=== PATIENT | female | born 1955 | race Caucasian/White ===

== ENCOUNTER → 2016-05-01 | Outpatient (CLI) | payer BC ==
--- NOTE | 2016-05-01 15:59 | REPMRS ---
Patient History The patient states she has not had a clinical breast exam in over a year. Patient is nulliparous. No known family history of cancer. Benign excisional biopsy of the left breast. Digital Woman Screen Mammo: May 01, 2016 - Exam #: [id number] Bilateral CC and MLO view(s) were taken. Technologist: Nicole Marks, Technologist Prior study comparison: April 19, 2015, digital woman screen mammo performed at [facility]. April 20, 2014, digital woman screen mammo performed at [facility]. April 14, 2013, digital woman screen mammo performed at [facility]. FINDINGS: There are scattered fibroglandular densities. There has been no change in the appearance of the mammogram from the prior studies. There is a mild amount of scattered fibroglandular density which is fairly symmetric. There is no interval development of dominant mass, architectural distortion, or clustered microcalcification suggestive of malignancy. ASSESSMENT: BI-RADS/ACR category 1 mammogram. Negative. Recommendation Routine screening mammogram in 1 year (for women over age 40). This mammogram was interpreted with the aid of an FDA-approved computer-aided dectection system. Electronically Signed By: Tk Jaramillo MD 05/01/16 [id number]
== END ==
LOC: M WHC 15:03
PROVIDERS: ATTEND Nurse Practitioner Family
DX: Z12.31 Encounter for screening mammogram for malignant neoplasm of breast (principal)

== ENCOUNTER → 2016-05-05 | Outpatient (CLI) | payer BC ==
--- NOTE | 2016-05-05 12:51 | REP ---
BILATERAL INGUINAL ULTRASOUND: Bilateral inguinal ultrasound performed to evaluate for possible inguinal or femoral hernia. There is no sonographic evidence of inguinal or femoral hernia. Imaging is performed at rest and with Valsalva maneuver. Small lymph nodes are seen which are not significantly enlarged. IMPRESSION: No sonographic evidence of inguinal or femoral hernia. Signed by Dharmesh Elliott MD 05/05/2016 08:32 P
== END ==
LOC: M RAD 10:44
PROVIDERS: ATTEND Nurse Practitioner Family
DX: R10.30 Lower abdominal pain, unspecified (principal)

== ENCOUNTER → 2016-10-12 | Outpatient (CLI) | payer BC ==
--- NOTE | 2016-10-12 17:58 | REP ---
LEFT FOOT, FOUR VIEWS: HISTORY: Pain. There is no acute fracture or dislocation. The joint spaces are normal in appearance. Osteophytes are present on the inferior and posterior calcaneus. IMPRESSION: There is no acute fracture or dislocation. Signed by Darrel Benton MD 10/13/2016 08:26 A
== END ==
LOC: M RAD 15:05
PROVIDERS: ATTEND Nurse Practitioner Family
DX: M79.672 Pain in left foot (principal)

== ENCOUNTER → 2017-04-05 | Outpatient (REF) | payer BC, OTHER | LOC: M SFHCPLAZ 17:11 | DX: L72.3 Sebaceous cyst (principal) | CPT/HCPCS: 87205 ==

== ENCOUNTER → 2017-07-23 | Outpatient (CLI) | payer BC, OTHER | LOC: M WHC 08:14 | DX: Z12.31 Encounter for screening mammogram for malignant neoplasm of breast (principal) | CPT/HCPCS: 77067 ==

== ENCOUNTER → 2017-07-23 | Outpatient (REF) | payer BC | LOC: M SFHCWAGY 08:44 | DX: Z12.72 Encounter for screening for malignant neoplasm of vagina (principal) | CPT/HCPCS: G0123 ==

== ENCOUNTER → 2017-09-03 | Outpatient (REF) | payer BC ==
[2017-09-03 11:21] LABS: ALBUMIN 3.9 GM/DL (3.2-5.2); ALBUMIN/GLOBULIN RATIO 1.18 (1.00-1.93); ALKALINE PHOSPHATASE 93 U/L (45-117); ALT/SGPT 20 U/L (12-78); ANION GAP 8 MEQ/L (8-16); AST/SGOT 10 U/L (7-37); BILIRUBIN,TOTAL 0.5 MG/DL (0.2-1.0); BLOOD UREA NITROGEN 19 MG/DL (7-18); CALCIUM LEVEL 8.5 MG/DL (8.8-10.2); CARBON DIOXIDE LEVEL 28 MEQ/L (21-32); CHLORIDE LEVEL 105 MEQ/L (98-107); CHOLESTEROL LEVEL 155 MG/DL (<200); CREATININE FOR GFR 0.64 MG/DL (0.55-1.30); GLOMERULAR FILTRATION RATE > 60.0 (>45); GLUCOSE, FASTING 104 MG/DL (70-100); HDL CHOLESTEROL 50 MG/DL (>40); LDL CHOLESTEROL 79.8 MG/DL (<100); NON-HDL-C 105 MG/DL; POTASSIUM SERUM 4.4 MEQ/L (3.5-5.1); SODIUM LEVEL 141 MEQ/L (136-145); TOTAL PROTEIN 7.2 GM/DL (6.4-8.2); TRIGLYCERIDES LEVEL 126 MG/DL (<150)
[2017-09-03 11:22] LABS: ESTIMATED AVERAGE GLUCOSE 123 MG/DL (60-110); HEMOGLOBIN A1c 5.9 %
== END ==
LOC: M SFHCPLAZ 08:15
DX: E78.2 Mixed hyperlipidemia (principal); R73.01 Impaired fasting glucose; E03.9 Hypothyroidism, unspecified
CPT/HCPCS: 84443

== ENCOUNTER → 2017-09-12 | Outpatient (REF) | payer BC | LOC: M SFHCPLAZ 08:38 | DX: E03.9 Hypothyroidism, unspecified (principal) | CPT/HCPCS: 84443 ==

== ENCOUNTER 2018-04-24 17:58 | Inpatient (IN) | payer BC ==
[~2018-04-24] VITALS: Ht 162.6 cm; Wt 84.7 kg
[2018-04-24] MEDS ORDERED: LEVO150T7 (18:08)
[2018-04-24] MEDS ORDERED: VENL37.598 (18:08)
[2018-04-24] MEDS ORDERED: DICL1GEL3 (18:08)
[2018-04-24] MEDS ORDERED: GABA-843 (18:08)
[2018-04-24] MEDS ORDERED: SIMV40TA2 (18:08)
[2018-04-24 19:04] LABS: BASO # 0.1 10^3/uL (0.0-0.2); BASO % 0.7 % (0.0-1.0); EOS # 0.3 10^3/uL (0.0-0.50); EOS % 4.2 % (0.0-3.0); HEMATOCRIT 40.2 % (36.0-47.0); LYMPH # 1.7 10^3/uL (1.5-4.5); LYMPH % 22.9 % (24.0-44.0); MEAN CORPUSCULAR HEMOGLOBIN 31.1 pg (27.0-33.0); MEAN CORPUSCULAR HGB CONC 34.8 g/dl (32.0-36.5); MEAN CORPUSCULAR VOLUME 89.3 fl (80.0-96.0); MONO # 0.7 10^3/uL (0.0-0.8); MONO % 9.2 % (0.0-5.0); NEUTROPHILS # 4.6 10^3/uL (1.8-7.7); NEUTROPHILS % 62.6 % (36.0-66.0); PLATELET COUNT, AUTOMATED 291 10^3/uL (150-450); WHITE BLOOD COUNT 7.4 10^3/uL (4.0-10.0)
[2018-04-24 19:38] LABS: ALBUMIN 3.4 GM/DL (3.2-5.2); ALT/SGPT 18 U/L (12-78); BILIRUBIN,DIRECT < 0.1 MG/DL (0.0-0.2); BILIRUBIN,TOTAL 0.2 MG/DL (0.2-1.0); BLOOD UREA NITROGEN 28 MG/DL (7-18); CALCIUM LEVEL 8.9 MG/DL (8.8-10.2); CARBON DIOXIDE LEVEL 28 MEQ/L (21-32); CHLORIDE LEVEL 108 MEQ/L (98-107); CREATININE FOR GFR 0.73 MG/DL (0.55-1.30); GLOMERULAR FILTRATION RATE > 60.0 (>45); GLUCOSE, FASTING 114 MG/DL (70-100); LIPASE 86 U/L (73-393); SODIUM LEVEL 143 MEQ/L (136-145); TOTAL PROTEIN 6.6 GM/DL (6.4-8.2)
[2018-04-24] MEDS ORDERED: NS 1,000 ML IV ONE (19:45)
[2018-04-24] MEDS ORDERED: ONDANSETRON 4MG/2ML VIAL (J2405) IV ONE (19:45)
[2018-04-24] MEDS ORDERED: KETOROLAC 30 MG/ML VIAL (J1885) IV ONE (19:45)
[2018-04-24] MEDS ORDERED: ISOVUE-370 76% 100ML VIAL (Q9967) As Ordered ONE (20:09)
--- NOTE | 2018-04-24 21:18 | REPVR ---
EXAM: CT Abdomen and Pelvis With Contrast EXAM DATE/TIME: 04/24/2018 8:13 PM CLINICAL HISTORY: 63 years old, female; Pain; Abdominal pain; Additional info: Llq pain TECHNIQUE: Axial computed tomography images of the abdomen and pelvis with intravenous contrast. All CT scans at this facility use at least one of these dose optimization techniques: automated exposure control; mA and/or kV adjustment per patient size (includes targeted exams where dose is matched to clinical indication); or iterative reconstruction. Coronal and sagittal reformatted images were created and reviewed. CONTRAST: Contrast Material: 100 ml of ISOVUE 370; Contrast Route: IV COMPARISON: Pelvis, limited US 05/05/2016 10:52 AM FINDINGS: Lower thorax: Minimal bibasilar fibro-atelectatic change. ABDOMEN: Liver: Liver attenuation is 84 Hounsfield units and the spleen is 119 Hounsfield units. Gallbladder and bile ducts: The gallbladder is somewhat contracted with no stones. Pancreas: Normal. No ductal dilation. Spleen: Normal. No splenomegaly. Adrenals: Slight fullness of the left adrenal without specific nodule suggesting hyperplasia. Kidneys and ureters: Normal. No hydronephrosis. Stomach and bowel: There is a lobular fatty mass protruding into the lumen of the gastric body from the caudal wall was some protrusion through the dae-inferior gastric wall into the adjacent perigastric soft tissues suggesting a mural lipoma which protrudes into the lumen of stomach measuring approximately 2.4 x 2.2 x 2.3 cm. There is suggestion of a central dimple or ulceration within the stomach. Colonic diverticulosis. There is slight pericolonic induration of the distal descending colon which may reflect early or minimal diverticulitis. There is a linear density in the proximal descending colon which slightly tents the posterior wall although definite extension beyond the wall is not seen and no pericolonic induration or pericolonic gas is present at this location. Appendix: A normal appendix is seen. PELVIS: Bladder: Unremarkable as visualized. Reproductive: Status post hysterectomy. ABDOMEN and PELVIS: Intraperitoneal space: Minimal free air in the upper abdomen. Bones/joints: Degenerative changes of the lumbar spine with facet arthropathy. Soft tissues: Unremarkable. Vasculature: There is irregularity of the right renal artery with suggestion of ulceration or superficial aneurysm. There is minimal atherosclerotic calcification of the abdominal aorta. Lymph nodes: Normal. No enlarged lymph nodes. IMPRESSION: 1. Minimal free air in the epigastrium consistent with perforated viscus. 2. Colonic diverticulosis with slight pericolonic induration in the distal descending colon suggesting early or minimal diverticulitis although no definite site of perforation is seen and there is no pericolonic gas. 3. Linear radiopaque ingested foreign body in the proximal descending colon or distal splenic flexure which protrudes into the posterior wall with slight tenting of the wall but no definite penetration of the wall. No pericolonic induration or gas is noted. 4. Mild fatty infiltration of the liver. 5. Lobular fatty mass or mural lipoma within the gastric body with question of slight extension through the wall into the anteroinferior perigastric fat. There is question of a central dimple or ulceration in the portion within the stomach. 6. Irregularity of the right renal artery suggesting atherosclerotic ulceration. 7. Status post hysterectomy. Electronically signed by: Juan Carlos Goyal On 04/24/2018 21:18:23 PM
[2018-04-24] MEDS ORDERED: SIMV40TA2 PO (23:20)
[2018-04-24] MEDS ORDERED: SYNT150T PO (23:20)
[2018-04-24] MEDS ORDERED: GABA-843 PO (23:20)
[2018-04-24] MEDS ORDERED: DICL1GEL3 TOP (23:20)
[2018-04-24] MEDS ORDERED: ACETAMINOPHEN TAB 650MG DOSE (2X325MG) PO PRN (23:45)
[2018-04-24] MEDS ORDERED: METOCLOPRAMIDE INJ 10MG/2ML VIAL (J2765) IV PRN (23:45)
[2018-04-24] MEDS ORDERED: ONDANSETRON 4MG/2ML VIAL (J2405) IV PRN (23:45)
[2018-04-24] MEDS ORDERED: MORPHINE 4 MG/ML 1ML VIAL/SYRINGE (J2270) IV PRN (23:45)
[2018-04-24] MEDS ORDERED: NORCO, ANEXSIA 5/325MG TABLET (HYDROcodone/ACETAMINOPHEN) PO PRN (23:45)
[2018-04-25] MEDS: LR 1,000 ML IV SCH ×3 (00:31→16:32)
[2018-04-25] MEDS: CIPROFLOXACIN 400 MG in APPROPRIATE DILUENT 1 EA IV SCH ×2 (00:31→12:58)
[2018-04-25] MEDS: metroNIDAZOLE 500 MG in APPROPRIATE DILUENT 1 EA IV SCH ×3 (01:33→16:32)
[2018-04-25 03:25] VITALS: BP 127/60
--- NOTE | 2018-04-25 04:26 | HPE ---
DATE OF ADMISSION: 04/24/2018 REASON FOR ADMISSION: 1. Free intraperitoneal air. 2. Colonic foreign body. 3. Urinary tract infection. HISTORY OF PRESENT ILLNESS: The patient is a pleasant 63-year-old woman who presented to the emergency department at 1758 on April 24 complaining of some lower abdominal discomfort and the impression that she had a urinary tract infection. The patient reports that on Sunday night, April 19, she and her had fish filets for dinner. She did not notice anything in peculiar about the fish. She retired at about 9 or 10 o'clock in the evening. She was awakened in the middle of the night with diarrhea. She then developed nausea and vomiting which persisted all Sunday night and into Sunday morning. On Sunday evening, she was able to take some Jell-o and abel yolette. By Sunday her symptoms had remitted enough that she had some chicken with her on Sunday evening. On Sunday morning, she noted that there was some discomfort across the lower abdomen. This persisted and became somewhat more pronounced but still fairly mild. On the morning of the , she voided due to the urge to go, but noticed she only had a small trickle of urine released. She noted this is being abnormal; and with her symptoms, she thought she most likely had a urinary tract infection. She presented to the emergency department for evaluation. She had some lab work done and a urinalysis that showed many white cells in the urine with a 1+ leukocyte esterase and 1+ bacteria. Her labs were otherwise unremarkable. She underwent a CT scan of the abdomen and pelvis apparently to look for evidence of diverticulitis. When a CT scan images were reviewed, she was noted to have multiple perhaps 10 or 12 small free air bubbles in the left upper quadrant and around the liver. She has extensive sigmoid diverticulitis and diverticulosis. There was a calcified linear structure in the region of the splenic flexure suggestive of a foreign body, possibly a bone. There was no free fluid noted. The radiologist noted a lobular fatty mass of the gastric wall. A normal appendix was seen. Because of her free air and the colonic foreign body, I was consulted to evaluate the patient. ALLERGIES: The patient reports allergies to SULFA and ASPIRIN, as well as some environmental allergies. Her regular medications include: - diclofenac gel for her feet as needed - gabapentin 300 mg daily at bedtime - levothyroxine 150 mcg by mouth every evening - simvastatin 40 mg by mouth daily at bedtime Her surgical history is significant for a hysterectomy and tonsillectomy and she has had bilateral knee surgeries performed arthroscopically. MEDICAL HISTORY: The patient has hypothyroidism. She has a history of diverticulosis and previous diverticulitis. She does report having had urinary tract infections previously; most recently perhaps 6 months ago. She reports a history of hypercholesterolemia. SOCIAL HISTORY: The patient denies significant alcohol intake. She does smoke about a pack to a pack and half cigarettes per day. She is accompanied to the emergency department by her . FAMILY HISTORY: She has no significant history of heritable illnesses. REVIEW OF SYSTEMS: This shows no history of cardiac disease, chest pain or palpitations. She has not had a cough, wheezing or sputum production. She has no history of deep vein thrombosis (DVT) or pulmonary embolus. There is no history of seizure or stroke. She denies any acute bone or joint issues. There is no history of hepatitis, pancreatitis or yellow jaundice. She denies any history of peptic ulcer disease. She does report a past history of diverticulitis. PHYSICAL EXAMINATION: The patient was lying quietly on the hospital stretcher in the emergency department when I came to see year. She is alert and oriented. Sclerae are anicteric. Mucous membranes are moist. Neck is supple without mass or bruit. Heart exam shows a regular rhythm. The lungs are clear to auscultation bilaterally. The patient's abdomen is flat. She has bowel sounds present. There is no tympany to percussion and no tenderness to percussion. The abdomen is soft throughout without appreciable tenderness. There is a small area of tenderness low in the suprapubic area. Extremities show no peripheral edema and she has palpable dorsalis pedis pulses. She has palpable radial pulse bilaterally. Laboratory studies include a complete blood count (CBC) that shows a white count of 7, hemoglobin of 14, hematocrit of 40 and platelet count of 291,000. Differential count shows 63% neutrophils, 23% lymphocytes, 9% monocytes. Chemistry profile shows a sodium of 143, potassium 4.0, chloride 108, CO2 of 28, BUN of 28, creatinine 0.7 and glucose of 114. Liver function tests are normal and her lipase is 86. Urinalysis shows 1+ leukocyte esterase, 39 white cells and 8 red cells per high-power field with 1+ bacteria. IMPRESSION: 1. Free intra-abdominal air consistent with perforated viscus without any evidence of peritoneum, peritonitis and with no significant abdominal pain. Likewise on the CT scan there is no area around the bowel or stomach with free air to suggest a source for the leak. 2. Foreign body splenic flexure of colon. This looks like it could be a bone based on the calcified nature of the structure. This does not appear to puncture the colon at this time, though I suppose it could be that it had caused a perforation elsewhere which has sealed and the bone then moved down the colon further. 3. Probable urinary tract infection. PLAN: The patient has no evidence for an infection with a normal white count, no pain and no tenderness of significance on exam. Given the free air, she clearly has had a perforation of her viscus, but the timing of this is unclear. This may have happened days ago and we are seeing only the residual air within the abdomen. The patient does not recall any difficulties with swallowing or any suggestion of swallowing a bone or finding other bones either in the fish or the chicken she had over the weekend. She will be admitted to the hospital for close observation. I will put her on some antibiotics with Cipro and Flagyl which should treat her urinary tract infection also be prophylactic against any sort of intestinal perforation. She has a abnormality in the colon which could represent a bone and this will need to be monitored and possibly addressed either endoscopically or surgically. The patient and her were counseled regarding the rationale for admission with antibiotics and are agreeable with this plan. I will recheck her labs in the morning. We will continue her Synthroid. I will allow her to take some clear liquids as her abdomen is so benign at this point.
[2018-04-25 07:35] LABS: BASO % 0.7 % (0.0-1.0); EOS # 0.3 10^3/uL (0.0-0.50); EOS % 5.5 % (0.0-3.0); HEMATOCRIT 36.9 % (36.0-47.0); HEMOGLOBIN 12.7 g/dl (12.0-15.5); LYMPH # 1.3 10^3/uL (1.5-4.5); LYMPH % 21.5 % (24.0-44.0); MEAN CORPUSCULAR HEMOGLOBIN 31.2 pg (27.0-33.0); MEAN CORPUSCULAR HGB CONC 34.4 g/dl (32.0-36.5); MEAN CORPUSCULAR VOLUME 90.7 fl (80.0-96.0); MONO # 0.7 10^3/uL (0.0-0.8); NEUTROPHILS # 3.7 10^3/uL (1.8-7.7); NEUTROPHILS % 61.1 % (36.0-66.0); PLATELET COUNT, AUTOMATED 255 10^3/uL (150-450); RED BLOOD COUNT 4.07 10^6/uL (4.00-5.40)
[2018-04-25 08:00] VITALS: BP 115/55
[2018-04-25 08:10] LABS: ALBUMIN 2.9 GM/DL (3.2-5.2); ALT/SGPT 16 U/L (12-78); BILIRUBIN,TOTAL 0.5 MG/DL (0.2-1.0); BLOOD UREA NITROGEN 23 MG/DL (7-18); CALCIUM LEVEL 7.9 MG/DL (8.8-10.2); CARBON DIOXIDE LEVEL 26 MEQ/L (21-32); CHLORIDE LEVEL 109 MEQ/L (98-107); CREATININE FOR GFR 0.55 MG/DL (0.55-1.30); GLOMERULAR FILTRATION RATE > 60.0 (>45); GLUCOSE, FASTING 104 MG/DL (70-100); POTASSIUM SERUM 3.9 MEQ/L (3.5-5.1); SODIUM LEVEL 141 MEQ/L (136-145)
--- NOTE | 2018-04-25 08:10 | REP ---
Clinical: Foreign body. Technique: Single supine view of the abdomen and pelvis. Correlation: CT dated 04/24/2018. Findings: There appears to be a thin linear foreign body measuring approximately 13 mm in length in the left mid abdomen corresponding to similar finding on CT which is essentially unchanged in position consistent with a suggestion that is enlarged into and possibly through the colonic lumen. This may represent a small ingested bony fragment but correlation with physical examination and history is recommended. Further evaluation the bowel pattern suggests fecal stasis. No obstruction or perforation identified. No organomegaly. Skeletal structures demonstrate degenerative changes. Layering contrast noted in the bladder. Impression: Thin linear foreign body in the left mid abdomen corresponding to finding on CT. The small amount of free air identified on CT is not obvious or apparent by current radiograph. Electronically Signed by Luis Felipe Champagne MD 04/25/2018 08:01 A
[2018-04-25 12:00] VITALS: BP 115/59
[2018-04-25 14:15] VITALS: BP 118/58
[2018-04-25] MEDS ORDERED: LEVOTHYROXINE 150MCG TABLET (0.15MG) PO SCH (17:00)
[2018-04-25] MEDS ORDERED: CIPR-249 PO (17:31)
[2018-04-25] MEDS ORDERED: FLAG500T PO (17:31)
--- NOTE | 2018-04-26 17:21 | IPN ---
DATE: 04/25/2018 HISTORY: The patient is a 63-year-old woman who was admitted last evening after presenting to the emergency department with symptoms suggestive of a urinary tract infection. A CT scan showed some bubbles of free air in the upper abdomen. There was also a linear density in the proximal descending colon, which slightly tented the posterior wall with no evidence of pericolonic induration or pericolonic gas at that level. The radiologist felt that this represented a foreign body of uncertain significance. The patient was admitted overnight and kept on antibiotics. Today she has felt fine and has tolerated clear liquids. Vital Signs: Show that she has been afebrile since admission. Her pulse remains in the 50s, and her blood pressure is excellent with a normal room air oxygen saturation. Intake and output shows that yesterday she had 4 liters in with 1800 out. PHYSICAL EXAMINATION: The patient is sitting up in bed looking comfortable. She is alert and oriented. Heart exam shows a slow regular rhythm. Lungs are clear. The abdomen is flat. She has active bowel sounds. The abdomen is soft and nontender without appreciable mass. Laboratory studies today show a white count of 6 with differential showing 61% neutrophils, 22% lymphocytes and 11% monocytes with 6% eosinophils. Hemoglobin is 13 with a hematocrit of 37 and the platelet count is 255,000. Chemistry profile shows normal electrolytes with the exception of a slight elevation of the chloride to 109. BUN is 23 with a creatinine of 0.55 and the glucose is 104. Liver function tests are normal. A KUB was done this morning, which shows a persistent linear foreign body in the left midabdomen. This appears to lie at the same level as on the CT scan from the night before. Her urine culture returned as no growth of clinical significance despite having many white cells and positive bacteria on the urinalysis. IMPRESSION: 1. Free intra-abdominal air of uncertain significance but certainly suggestive of a now sealed perforation. 2. Colonic foreign body. 3. No evidence of urinary tract infection by culture. 4. Diverticulosis. PLAN: I spoke earlier in the day with one of the admissions nurse regarding this patient. I asked his impression regarding the potential of performing a colonoscopy to remove the foreign body. It is unclear if this foreign body is of any significance, however. The source of the free air remains unclear. It may be that she had perforated a diverticulum minimally which then sealed. It could be that the foreign body had caused a perforation of the bowel, which then also subsequently sealed. Certainly she has no evidence for peritonitis currently. In speaking with Dr. Hawkins, we have agreed that it seemed that a minimal approach of monitoring only would probably be the best. In order to perform a colonoscopy, it would be necessary to do a bowel prep, and there is no certainty whether this would be more or less likely to cause the foreign body to cause a perforation. Likewise, there is no evidence of any inflammation in the area where the foreign body is located, so identifying this laparoscopically to try to remove it would also be difficult if not impossible. I had a long discussion with the patient regarding our options for care. We have agreed that she will be discharged home this evening. She will be sent home on antibiotics, and I will provide her with ciprofloxacin and Flagyl for a 5-day supply. She will eat a regular diet. I have asked her to have a KUB done on 04/29/2018, to followup on the location of the foreign body. It may be that when this overlies her more midline skeletal structures that we will not be able to identify this by a plain film. She was counseled at length that if she were to develop significant abdominal or pelvic pain that she should return to the emergency department for reevaluation. I will otherwise plan on having her follow up with me in the office in 10 days to ensure that we do not lose her to followup. The patient appeared to understand the plan. She agrees to return if any problems develop. I will await the results of her KUB from 04/29/2018.
== END 2018-04-25 19:01 | disposition home or self-care (01) | DRG 254 ==
LOC: M ED 17:58 → M ED INP 23:44 → M PCU 04-25 03:18 → M MS5PR 04-25 13:52
PROVIDERS: ADMIT Surgery; ATTEND Surgery
DX: T18.4XXA Foreign body in colon, initial encounter (principal); K63.1 Perforation of intestine (nontraumatic); Y92.009 Unspecified place in unspecified non-institutional (private) residence as the place of occurrence of the external cause; J30.9 Allergic rhinitis, unspecified; K57.32 Diverticulitis of large intestine without perforation or abscess without bleeding; E03.9 Hypothyroidism, unspecified; E78.00 Pure hypercholesterolemia, unspecified; Z79.899 Other long term (current) drug therapy; Z88.2 Allergy status to sulfonamides; Z88.6 Allergy status to analgesic agent

== ENCOUNTER → 2018-04-29 | Outpatient (CLI) | payer BC ==
[~2018-04-29] MED LIST: CIPR-249 PO; DICL1GEL3; DICL1GEL3 TOP; FLAG500T PO; GABA-843; GABA-843 PO; LEVO150T7; SIMV40TA2; SIMV40TA2 PO; SYNT150T PO; VENL37.598
--- NOTE | 2018-04-29 09:12 | REP ---
Clinical: Follow-up foreign body. Technique: Two supine views of the abdomen and pelvis. Comparison: 04/25/2018. Findings: While the previously noted foreign body is not definitively identified on current examination, its position within the sigmoid in the deep pelvis overlying the sacrum cannot definitively be excluded. The bowel gas pattern is otherwise nonspecific and without evidence for obstruction or obvious perforation. Skeletal structures demonstrate stable degenerative changes. No organomegaly. Impression: 1. Although the foreign body is not definitively identified, its position within the sigmoid in the pelvis overlying the sacrum cannot definitively be excluded. Clinical correlation is recommended along with follow-up x-ray in 24-48 hours may be warranted. Electronically Signed by Luis Felipe Champagne MD 04/29/2018 09:04 A
== END ==
LOC: M RAD 08:38
PROVIDERS: ATTEND Surgery
DX: Z09 Encounter for follow-up examination after completed treatment for conditions other than malignant neoplasm (principal); T18.4XXD Foreign body in colon, subsequent encounter; Y92.9 Unspecified place or not applicable; Y93.9 Activity, unspecified

== ENCOUNTER → 2018-04-30 | Outpatient (CLI) | payer BC ==
--- NOTE | 2018-04-30 15:21 | REP ---
Clinical: Foreign body. Technique: Two supine views of the abdomen and pelvis. Findings: Bowel gas pattern is nonspecific. No foreign body identified. No evidence for obstruction or perforation. No organomegaly. Skeletal structures demonstrate degenerative changes. Impression: Nonspecific bowel gas pattern. No radiodense foreign body identified. Electronically Signed by Luis Felipe Champagne MD 04/30/2018 03:13 P
== END ==
LOC: M RAD 14:47
PROVIDERS: ATTEND Family Medicine
DX: T18.9XXD Foreign body of alimentary tract, part unspecified, subsequent encounter (principal); X58.XXXA Exposure to other specified factors, initial encounter; Y92.9 Unspecified place or not applicable

== ENCOUNTER → 2018-07-30 | Outpatient (CLI) | payer BC ==
--- NOTE | 2018-07-30 09:55 | REPMRS ---
Patient History The patient states she had a clinical breast exam in 07/2018. Patient is nulliparous. No known family history of cancer. Benign excisional biopsy of the left breast. No Hormone Replacement Therapy 3D TOMOSYNTHESIS WAS PERFORMED. Digital Woman Screen Mammo: July 30, 2018 - Exam #: [id number] Bilateral CC and MLO view(s) were taken. Technologist: Shaina Ball, Technologist Prior study comparison: July 23, 2017, digital woman screen mammo performed at [facility]. May 01, 2016, digital woman screen mammo performed at [facility]. FINDINGS: The breast tissue is heterogeneously dense. This may lower the sensitivity of mammography. There has been no change in the appearance of the mammogram from the prior studies. There is a moderate amount of residual fibroglandular tissue which is fairly symmetric. There is no interval development of dominant mass, areas of architectural distortion, or clustered microcalcification typical of malignancy. Assessment: BI-RADS/ACR category 1 mammogram. Negative Mammogram. Recommendation Routine screening mammogram in 1 year (for women over age 40). This mammogram was interpreted with the aid of an FDA-approved computer-aided dectection system. Electronically Signed By: Dharmesh Elliott MD 07/30/18 [id number]
== END ==
LOC: M WHC 07:53
PROVIDERS: ATTEND Nurse Practitioner Family
DX: Z12.31 Encounter for screening mammogram for malignant neoplasm of breast (principal)

== ENCOUNTER → 2018-09-09 | Outpatient (REF) | payer BC ==
[2018-09-09 12:29] LABS: BLOOD UREA NITROGEN 16 MG/DL (7-18); CALCIUM LEVEL 8.7 MG/DL (8.8-10.2); CARBON DIOXIDE LEVEL 31 MEQ/L (21-32); CHLORIDE LEVEL 106 MEQ/L (98-107); CHOLESTEROL LEVEL 146 MG/DL (<200); CHOLESTEROL RISK RATIO 3.106 (<5); CREATININE FOR GFR 0.68 MG/DL (0.55-1.30); FREE T4 1.19 NG/DL (0.76-1.46); GLOMERULAR FILTRATION RATE > 60.0 (>45); GLUCOSE, FASTING 111 MG/DL (70-100); HDL CHOLESTEROL 47 MG/DL (>40); LDL CHOLESTEROL 76 MG/DL (<100); NON-HDL-C 99 MG/DL; POTASSIUM SERUM 4.5 MEQ/L (3.5-5.1); SODIUM LEVEL 140 MEQ/L (136-145); TRIGLYCERIDES LEVEL 117 MG/DL (<150)
[2018-09-09 12:32] LABS: HEMOGLOBIN A1c 6.5 %
== END ==
LOC: M SFHCLERA 08:13
PROVIDERS: ATTEND Family Medicine
DX: E03.9 Hypothyroidism, unspecified (principal); R73.01 Impaired fasting glucose; E78.2 Mixed hyperlipidemia

== ENCOUNTER → 2018-12-02 | Outpatient (REF) | payer BC ==
[2018-12-02 12:07] LABS: BLOOD UREA NITROGEN 17 MG/DL (7-18); CALCIUM LEVEL 8.7 MG/DL (8.8-10.2); CARBON DIOXIDE LEVEL 29 MEQ/L (21-32); CHLORIDE LEVEL 107 MEQ/L (98-107); CREATININE FOR GFR 0.64 MG/DL (0.55-1.30); GLOMERULAR FILTRATION RATE > 60.0 (>45); GLUCOSE, FASTING 113 MG/DL (70-100); POTASSIUM SERUM 4.7 MEQ/L (3.5-5.1); SODIUM LEVEL 140 MEQ/L (136-145)
[2018-12-02 12:27] LABS: HEMOGLOBIN A1c 5.9 %
[2018-12-02 12:54] LABS: MALB URINE SIEMENS 45.8 MG/L
== END ==
LOC: M SFHCLERA 07:53
PROVIDERS: ATTEND Family Medicine
DX: E11.9 Type 2 diabetes mellitus without complications (principal)

== ENCOUNTER → 2019-02-25 | Outpatient (CLI) | payer BC ==
[~2019-02-25] MED LIST changes: -SIMV40TA2; -SIMV40TA2 PO; +SIMV40TA20; +SIMV40TA20 PO
--- NOTE | 2019-02-25 12:01 | REPPI ---
Clinical: Cervical neck pain. Technique: AP, lateral, flexion/extension, bilateral oblique, and open-mouth views of the cervical spine. Findings: Alignment and lordosis maintained. No acute fracture / compression injury or subluxation. Mild multilevel degenerative changes include marginal spurring with minimal endplate sclerosis. Subtle disc space narrowing at C6-7 noted. Neural foramen appear patent. Open mouth view demonstrates normal C1-C2 articulation and odontoid process. Impression: Minimal age-related degenerative changes. Electronically Signed by Luis Felipe Champagne MD 02/25/2019 11:52 A
== END ==
LOC: M PLAIMG 11:35
PROVIDERS: ATTEND Nurse Practitioner Family
DX: M50.322 Other cervical disc degeneration at C5-C6 level (principal); M25.78 Osteophyte, vertebrae

== ENCOUNTER → 2019-08-01 | Outpatient (CLI) | payer BC ==
--- NOTE | 2019-08-01 15:24 | REPMRS ---
Patient History The patient states she had a clinical breast exam in July 2019. No known family history of cancer. Benign excisional biopsy of the left breast. No Hormone Replacement Therapy Digital Woman Screen Mammo: August 01, 2019 - Exam #: [id number] Bilateral CC and MLO view(s) were taken. Technologist: Sheree Tovar, Technologist Prior study comparison: July 30, 2018, bilateral digital woman screen mammo performed at [facility]. July 23, 2017, digital woman screen mammo performed at [facility]. May 01, 2016, digital woman screen mammo performed at [facility]. FINDINGS: There are scattered fibroglandular densities. The Volpara volumetric breast density category is:A. There has been no change in the appearance of the mammogram from the prior studies. There is a mild amount of scattered fibroglandular density which is fairly symmetric. There is no interval development of dominant mass, architectural distortion, or grouped microcalcification suggestive of malignancy. 3-D tomosynthesis shows no additional findings. Assessment: BI-RADS/ACR category 1 mammogram. Negative Mammogram. Recommendation Routine screening mammogram of both breasts in 1 year (for women over age 40). This patient's Lifetime Breast Cancer Risk is estimated at 9.1 %. This mammogram was interpreted with the aid of an FDA-approved computer-aided dectection system. Electronically Signed By: Tk Jaramillo MD 08/01/19 [id number]
--- NOTE | 2019-08-06 09:13 | DEXA ---
AP SPINE L1 - L4 1.417 1.8 3.3 LT FEMUR TOTAL 0.955 -0.4 0.7 LT NECK 0.858 -1.3 0.1 RT FEMUR TOTAL 0.996 -0.1 1.0 RT NECK 1.028 -0.1 1.3 TOTAL BODY TOTAL OTHER COMMENTS: Normal bone densitometry of the spine. Normal bone densitometry of the right hip. There is low bone density of the left hip. The decreased density of the spine does represent a significant change. The increased density of the left hip does represent a significant change. The decreased density of the right hip does not represent a significant change. The density of the spine is decreased 3.6% since the initial exam on 07/03/2006. The decreased 5.1% since the most recent exam on 04/19/2015. The density of the left hip has decreased 4.0% since the initial exam on 07/03/2006. The density of the left hip has increased 3.1% since the most recent exam on 04/19/2015. The density of the right hip has decreased 3.6% since the initial exam on 07/03/2006. The density of the right hip has decreased 0.3% since the most recent exam on 04/19/2015. FOLLOW-UP: Recommendation for the next bone density exam: 2 years. CODY
== END ==
LOC: M WHC 14:04
PROVIDERS: ATTEND Nurse Practitioner Family

== ENCOUNTER → 2019-08-01 | Outpatient (REF) | payer BC ==
[2019-08-01 18:38] LABS: FREE T4 1.42 NG/DL (0.76-1.46); THYROID STIMULATING HORMONE 0.827 uIU/ML (0.358-3.740)
== END ==
LOC: M LRY 17:04
PROVIDERS: ATTEND Family Medicine
DX: E03.9 Hypothyroidism, unspecified (principal)

== ENCOUNTER → 2019-08-26 | Outpatient (REF) | payer BC ==
[2019-08-26 12:54] LABS: ALBUMIN 3.8 GM/DL (3.2-5.2); ALT/SGPT 20 U/L (12-78); BILIRUBIN,TOTAL 0.6 MG/DL (0.2-1.0); BLOOD UREA NITROGEN 16 MG/DL (7-18); CALCIUM LEVEL 8.8 MG/DL (8.8-10.2); CARBON DIOXIDE LEVEL 30 MEQ/L (21-32); CHLORIDE LEVEL 105 MEQ/L (98-107); CHOLESTEROL LEVEL 132 MG/DL (<200); CHOLESTEROL RISK RATIO 3.771 (<5); CREATININE FOR GFR 0.58 MG/DL (0.55-1.30); GLOMERULAR FILTRATION RATE > 60.0 (>45); GLUCOSE, FASTING 97 MG/DL (70-100); HDL CHOLESTEROL 35 MG/DL (>40); LDL CHOLESTEROL 66 MG/DL (<100); NON-HDL-C 97 MG/DL; POTASSIUM SERUM 4.7 MEQ/L (3.5-5.1); SODIUM LEVEL 138 MEQ/L (136-145); TRIGLYCERIDES LEVEL 157 MG/DL (<150)
[2019-08-26 13:23] LABS: HEMOGLOBIN A1c 6.8 %
== END ==
LOC: M SFHCLERA 09:07
PROVIDERS: ATTEND Family Medicine
DX: E78.2 Mixed hyperlipidemia (principal); Z13.1 Encounter for screening for diabetes mellitus

== ENCOUNTER → 2019-11-21 | Outpatient (CLI) | payer BC ==
[2019-11-21 16:12] LABS: HEMOGLOBIN A1c 6.3 %
== END ==
LOC: M PLALAB 12:47
PROVIDERS: ATTEND Family Medicine
DX: E11.9 Type 2 diabetes mellitus without complications (principal)

== ENCOUNTER → 2019-12-04 | Outpatient (REF) | payer BC | LOC: M SFHCPLAZ 17:06 | PROVIDERS: ATTEND Family Medicine | DX: L02.91 Cutaneous abscess, unspecified (principal) ==

== ENCOUNTER → 2020-01-26 | Outpatient (CLI) | payer BC ==
--- NOTE | 2020-01-26 09:52 | REP ---
INDICATION: NICOTINE DEPENDENCE COMPARISON: None. TECHNIQUE: Axial noncontrast images from the thoracic inlet to the upper abdomen using low-dose lung screening technique (LDCT). FINDINGS: Lung banks are well aerated. Very small scattered non solid ground-glass densities up to approximately 5 mm are suggested. There is a small focus of pleural thickening along the posterior right lower lobe (image 50) measuring approximately 10 mm in width. No consolidation, further suspicious nodule or mass lesion appreciated. No effusion. No pneumothorax. Tracheobronchial tree is patent. IMPRESSION: Lung rads category 2 based on above findings without prior examinations for comparison. Management recommendations include annual low-dose CT surveillance. <Electronically signed by Luis Felipe Champagne > 01/26/20 [id number]
== END ==
LOC: M RAD 08:36
PROVIDERS: ATTEND Family Medicine
DX: Z12.2 Encounter for screening for malignant neoplasm of respiratory organs (principal); F17.210 Nicotine dependence, cigarettes, uncomplicated; R94.2 Abnormal results of pulmonary function studies; R91.8 Other nonspecific abnormal finding of lung field

== ENCOUNTER → 2020-04-05 | Outpatient (REF) | payer BC ==
[~2020-04-05] MED LIST changes: +GABA-282; +GABA-282 PO; -GABA-843; -GABA-843 PO
[2020-04-05 14:43] LABS: CREATININE, URINE 16.6 MG/DL; MALB URINE SIEMENS < 5.0 MG/L; MAU/CREAT RATIO 30.1 MCG/MG (0.0-30.0)
[2020-04-05 16:27] LABS: HEMOGLOBIN A1c 6.3 %
== END ==
LOC: M PLALAB 10:11
PROVIDERS: ATTEND Family Medicine
DX: E11.9 Type 2 diabetes mellitus without complications (principal)

== ENCOUNTER → 2020-04-29 | Outpatient (CLI) | payer BC ==
[~2020-04-29] MED LIST changes: +CRAN400C PO; +METF-838 PO; +SYNT175T2 PO
== END ==
LOC: M LABSMTC 09:53
PROVIDERS: ATTEND Anesthesiology
DX: Z01.812 Encounter for preprocedural laboratory examination (principal); Z20.822 Contact with and (suspected) exposure to COVID-19

== ENCOUNTER 2020-05-04 06:35 | Day surgery (SDC) | payer BC ==
[~2020-05-04] VITALS: Ht 162.6 cm; Wt 86.6 kg
[2020-05-04] MEDS ORDERED: NS 1,000 ML IV ONE (07:00)
[2020-05-04] MEDS ORDERED: LIDOCAINE 2% 100MG/5ML SDV (FOR ANES.) As Ordered ONE (07:37)
[2020-05-04] MEDS ORDERED: propofoL 200 MG/20 ML VIAL As Ordered ONE ×2 (07:37→07:38)
--- NOTE | 2020-05-04 08:06 | ROOR ---
Patient Name: Ingrid Lara Procedure Date: 05/04/2020 7:29 AM Date of : 1955 Age: 65 Room: [facility] Gender: Female Note Status: Finalized Procedure: Colonoscopy Indications: Screening for colorectal malignant neoplasm Providers: Rashi FIELD MD Referring MD: Mary Araiza MD Requesting Provider: Medicines: Monitored Anesthesia Care Complications: No immediate complications. Procedure: Pre-Anesthesia Assessment: - The heart rate, respiratory rate, oxygen saturations, blood pressure, adequacy of pulmonary ventilation, and response to care were monitored throughout the procedure. The Colonoscope was introduced through the anus and advanced to the cecum, identified by appendiceal orifice and ileocecal valve. The colonoscopy was performed without difficulty. The patient tolerated the procedure well. The quality of the bowel preparation was good. Findings: The perianal and digital rectal examinations were normal. The left colon was significantly tortuous. Multiple small and large-mouthed diverticula were found in the left colon. There was evidence of diverticular spasm. Three sessile polyps were found in the rectum, sigmoid colon and splenic flexure. The polyps were 5 to 8 mm in size. These polyps were removed with a cold snare. Resection and retrieval were complete. Small Internal Hemorrhoids. Impression: - Tortuous colon with moderate to severe diverticulosis in the left colon. There was evidence of diverticular spasm. - Three 5 to 8 mm polyps in the rectum, in the sigmoid colon and at the splenic flexure, removed with a cold snare. Resected and retrieved. - Small Internal Hemorrhoids. Recommendation: - Would repeat colonoscopy in 3 years for surveillance. (tortuous colon with extensive diverticulosis/deep recesses/folds) Procedure Code(s): --- Professional --- 55576, Colonoscopy, flexible; with removal of tumor(s), polyp(s), or other lesion(s) by snare technique Diagnosis Code(s): --- Professional --- Z12.11, Encounter for screening for malignant neoplasm of colon K62.1, Rectal polyp K63.5, Polyp of colon K57.30, Diverticulosis of large intestine without perforation or abscess without bleeding Q43.8, Other specified congenital malformations of intestine CPT copyright 2019 [employer]. All rights reserved. The codes documented in this report are preliminary and upon disability manager review may be revised to meet current compliance requirements. Rashi Field MD Rashi FIELD MD 05/04/2020 8:06:17 AM Electronically signed by Rashi FIELD MD Number of Addenda: 0 Note Initiated On: 05/04/2020 7:29 AM Estimated Blood Loss: Estimated blood loss: none.
[2020-05-04 08:35] VITALS: BP 171/79
== END 2020-05-04 08:44 | disposition home or self-care (01) ==
LOC: M OPP 06:35
PROVIDERS: ATTEND Internal Medicine Gastroenterology
DX: Z12.11 Encounter for screening for malignant neoplasm of colon (principal); K64.8 Other hemorrhoids; K62.1 Rectal polyp; K63.5 Polyp of colon; Q43.8 Other specified congenital malformations of intestine; E11.9 Type 2 diabetes mellitus without complications; E03.9 Hypothyroidism, unspecified; F17.210 Nicotine dependence, cigarettes, uncomplicated; Z79.84 Long term (current) use of oral hypoglycemic drugs; Z79.899 Other long term (current) drug therapy; Z88.2 Allergy status to sulfonamides; Z88.6 Allergy status to analgesic agent; Z88.8 Allergy status to other drugs, medicaments and biological substances

== ENCOUNTER → 2020-08-03 | Outpatient (CLI) | payer BC ==
--- NOTE | 2020-08-03 12:26 | REPMRS ---
Patient History The patient states she had a clinical breast exam in August 2020. No known family history of cancer. Benign excisional biopsy of the left breast. No Hormone Replacement Therapy Patient states no breast complaints. Patient has signed the MRS history sheet. Digital Woman Screen Mammo: August 03, 2020 - Exam #: [id number] Bilateral CC and MLO view(s) were taken. Technologist: Carolee Villar, Technologist Prior study comparison: August 01, 2019, bilateral digital woman screen mammo performed at [facility]. July 30, 2018, bilateral digital woman screen mammo performed at [facility]. FINDINGS: There are scattered fibroglandular densities. Screening. Digital screening (2D) mammography was performed bilaterally in the CC and MLO projections. Additionally, breast tomosynthesis (3D mammography) was performed bilaterally in the CC and MLO projections. Todays exam was compared to the prior exams. By history, the patient has no complaints of a palpable breast abnormality or other significant breast complaints. The breasts are unchanged in size and shape. There are no sina-soft tissue densities or spiculated masses. There is no internal architectural distortion. There are no suspicious sina-calcific clusters. Skin thickening or nipple retraction is not present. IMPRESSION: BI-RADS Category 2- Benign Findings. There is no evidence of malignant alteration of the breasts. Followup examination recommended in one year. The Volpara volumetric breast density category is B, there are scattered areas of fibroglandular density. This mammogram was read with the assistance of [employer],an FDA approved computer aided detection system for mammography. The lifetime Tyrer-Cuzick score is 8.7 % Negative x-ray reports should not delay surgical consultation if a dominant or clinically suspicious mass is present. Not all breast cancers can be identified by mammography. Therefore, we recommend that you continue to perform regular breast self-examination and physical examination and then promptly contact your physician of any concerns or changes. Adenosis and dense breasts may obscure an underlying neoplasm. Assessment: BI-RADS/ACR category 2 mammogram. Benign Findings. Recommendation Routine screening mammogram of both breasts in 1 year. Electronically Signed By: Robin Schilling DO 08/03/20 [id number]
== END ==
LOC: M WHC 10:48
PROVIDERS: ATTEND Obstetrics & Gynecology
DX: Z12.31 Encounter for screening mammogram for malignant neoplasm of breast (principal)

== ENCOUNTER → 2020-11-24 | Outpatient (CLI) | payer BC ==
[2020-11-24 10:55] LABS: HEMOGLOBIN A1c 6.8 %
[2020-11-24 11:02] LABS: MAU/CREAT RATIO 18.5 MCG/MG (0.0-30.0)
[2020-11-24 11:07] LABS: ALBUMIN 3.7 GM/DL (3.2-5.2); ALT/SGPT 33 U/L (12-78); BILIRUBIN,TOTAL 0.4 MG/DL (0.2-1.0); BLOOD UREA NITROGEN 18 MG/DL (7-18); CALCIUM LEVEL 8.9 MG/DL (8.8-10.2); CARBON DIOXIDE LEVEL 31 MEQ/L (21-32); CHLORIDE LEVEL 104 MEQ/L (98-107); CHOLESTEROL LEVEL 142 MG/DL (<200); CHOLESTEROL RISK RATIO 4.303 (<5); GLOMERULAR FILTRATION RATE > 60.0 (>45); GLUCOSE, FASTING 153 MG/DL (70-100); HDL CHOLESTEROL 33 MG/DL (>40); LDL CHOLESTEROL 77 MG/DL (<100); NON-HDL-C 109 MG/DL; POTASSIUM SERUM 4.6 MEQ/L (3.5-5.1); SODIUM LEVEL 140 MEQ/L (136-145); TOTAL PROTEIN 6.7 GM/DL (6.4-8.2); TRIGLYCERIDES LEVEL 159 MG/DL (<150)
== END ==
LOC: M PLALAB 08:04
PROVIDERS: ATTEND Family Medicine
DX: E11.9 Type 2 diabetes mellitus without complications (principal); E78.2 Mixed hyperlipidemia; E03.9 Hypothyroidism, unspecified

== ENCOUNTER → 2021-01-25 | Outpatient (CLI) | payer BC ==
--- NOTE | 2021-01-25 11:52 | REP ---
INDICATION: NIDOTINE DEPEND. COMPARISON: 01/26/2020 also low-dose screening CT of the lungs TECHNIQUE: Axial noncontrast images from the thoracic inlet to the upper abdomen using low-dose lung screening technique (LDCT). As per the protocol only lung window imaging was sent to the read station for interpretation FINDINGS: There is biapical pleuroparenchymal scarring status quo. The small area of pleural thickening seen previously in the right lower lobe has resolved. No new abnormal nodules, masses, or opacities have developed since the last exam. There is mild cylindrical bronchiectasis status quo. Grossly, the mediastinum and pulmonary ryan are unchanged. Grossly, the imaged upper abdomen and imaged osseous structures are unchanged. IMPRESSION: Lung rads category 2 low-dose screening CT examination of the lungs. Follow-up as per the revised Fleischner society criteria. <Electronically signed by Robin Schilling > 01/25/21 1830
== END ==
LOC: M RAD 10:22
PROVIDERS: ATTEND Family Medicine
DX: Z12.2 Encounter for screening for malignant neoplasm of respiratory organs (principal); F17.210 Nicotine dependence, cigarettes, uncomplicated

== ENCOUNTER → 2021-05-31 | Outpatient (CLI) | payer MEDICARE ==
[2021-05-31 10:31] LABS: HEMOGLOBIN A1c 7.8 %
== END ==
LOC: M PLALAB 08:45
PROVIDERS: ATTEND Family Medicine
DX: E11.9 Type 2 diabetes mellitus without complications (principal)

== ENCOUNTER → 2021-08-31 | Outpatient (CLI) | payer MEDICARE ==
[2021-08-31 15:35] LABS: HEMATOCRIT 47.4 % (36.0-47.0); HEMOGLOBIN 15.9 g/dl (12.0-15.5); MEAN CORPUSCULAR HEMOGLOBIN 30.7 pg (27.0-33.0); MEAN CORPUSCULAR HGB CONC 33.5 g/dl (32.0-36.5); MEAN CORPUSCULAR VOLUME 91.5 fl (80.0-96.0); PLATELET COUNT, AUTOMATED 334 10^3/uL (150-450); RED BLOOD COUNT 5.18 10^6/uL (4.00-5.40); WHITE BLOOD COUNT 11.8 10^3/uL (4.0-10.0)
[2021-08-31 16:04] LABS: ALBUMIN 3.9 GM/DL (3.2-5.2); ALT/SGPT 35 U/L (12-78); BILIRUBIN,TOTAL 0.6 MG/DL (0.2-1.0); BLOOD UREA NITROGEN 15 MG/DL (7-18); C REACTIVE PROTEIN QUANTITATIV 1.69 MG/DL (0.00-0.30); CALCIUM LEVEL 9.5 MG/DL (8.8-10.2); CARBON DIOXIDE LEVEL 28 MEQ/L (21-32); CHLORIDE LEVEL 108 MEQ/L (98-107); CHOLESTEROL LEVEL 143 MG/DL (<200); CHOLESTEROL RISK RATIO 4.085 (<5); CREATININE FOR GFR 0.71 MG/DL (0.55-1.30); GLOMERULAR FILTRATION RATE > 60.0 (>45); GLUCOSE, FASTING 120 MG/DL (70-100); HDL CHOLESTEROL 35 MG/DL (>40); LDL CHOLESTEROL 61 MG/DL (<100); NON-HDL-C 108 MG/DL; POTASSIUM SERUM 5.2 MEQ/L (3.5-5.1); SODIUM LEVEL 141 MEQ/L (136-145); THYROID STIMULATING HORMONE 0.803 uIU/ML (0.358-3.740); TOTAL PROTEIN 7.2 GM/DL (6.4-8.2); TRIGLYCERIDES LEVEL 233 MG/DL (<150)
[2021-08-31 16:07] LABS: MALB URINE SIEMENS 29.7 MG/L; MAU/CREAT RATIO 15.6 MCG/MG (0.0-30.0)
[2021-08-31 16:10] LABS: HEMOGLOBIN A1c 7.1 %
[2021-08-31 16:16] LABS: TOTAL 25(OH) VITAMIN D 21.2 NG/ML (30.0-100.0); VITAMIN B12 LEVEL 332 PG/ML (247-911)
== END ==
LOC: M PLALAB 10:07
PROVIDERS: ATTEND Internal Medicine Hematology
DX: E11.9 Type 2 diabetes mellitus without complications (principal); Z79.899 Other long term (current) drug therapy

== ENCOUNTER → 2021-12-06 | Outpatient (CLI) | payer MEDICARE | LOC: M WHC 10:47 | PROVIDERS: ATTEND Specialist | DX: Z12.31 Encounter for screening mammogram for malignant neoplasm of breast (principal) ==

== ENCOUNTER → 2022-03-16 | Outpatient (CLI) | payer MEDICARE ==
[2022-03-16 14:03] LABS: HEMATOCRIT 47.5 % (36.0-47.0); HEMOGLOBIN 15.9 g/dl (12.0-15.5); MEAN CORPUSCULAR HEMOGLOBIN 30.5 pg (27.0-33.0); MEAN CORPUSCULAR HGB CONC 33.5 g/dl (32.0-36.5); PLATELET COUNT, AUTOMATED 326 10^3/uL (150-450); RED BLOOD COUNT 5.22 10^6/uL (4.00-5.40); WHITE BLOOD COUNT 9.4 10^3/uL (4.0-10.0)
[2022-03-16 14:07] LABS: ALKALINE PHOSPHATASE 106 U/L (46-116); ALT/SGPT 26 U/L (7.0-40); AST/SGOT 15 U/L (<34); BILIRUBIN,TOTAL 0.4 MG/DL (0.3-1.2); BLOOD UREA NITROGEN 19 MG/DL (9-23); CALCIUM LEVEL 9.2 MG/DL (8.3-10.6); CARBON DIOXIDE LEVEL 29 MMOL/L (20-31); CHLORIDE LEVEL 102 MMOL/L (98-107); CHOLESTEROL LEVEL 142 MG/DL (<200); CHOLESTEROL RISK RATIO 3.64 (<5); CREATININE FOR GFR 0.58 MG/DL (0.55-1.30); GLOMERULAR FILTRATION RATE > 60.0 (>45); GLUCOSE, FASTING 141 MG/DL (74-106); LDL CHOLESTEROL 69.6 MG/DL (<100); NON-HDL-C 103 MG/DL; POTASSIUM SERUM 4.7 MMOL/L (3.5-5.1); SODIUM LEVEL 137 MMOL/L (136-145); TOTAL PROTEIN 6.9 G/DL (5.7-8.2); TRIGLYCERIDES LEVEL 167 MG/DL (<150)
[2022-03-16 14:10] LABS: FREE T4 1.57 NG/DL (0.89-1.76)
[2022-03-16 14:11] LABS: FERRITIN 56.8 NG/ML (7.3-270.7); THYROID STIMULATING HORMONE 0.949 uIU/ML (0.55-4.78)
[2022-03-16 14:14] LABS: VITAMIN B12 LEVEL 358 PG/ML (211-911)
[2022-03-16 14:23] LABS: HEMOGLOBIN A1c 6.9 % (4.0-6.0)
[2022-03-16 14:26] LABS: CREATININE, URINE 160.9 MG/DL; MAU/CREAT RATIO 21.1 MCG/MG (0.0-30.0)
[2022-03-16 15:41] LABS: TOTAL 25(OH) VITAMIN D 62.4 NG/ML (20.0-100.0)
== END ==
LOC: M PLALAB 10:13
PROVIDERS: ATTEND Internal Medicine Hematology
DX: E11.9 Type 2 diabetes mellitus without complications (principal)

== ENCOUNTER → 2022-03-29 | Outpatient (CLI) | payer MEDICARE | LOC: M RAD 13:06 | PROVIDERS: ATTEND Internal Medicine Hematology | DX: F17.210 Nicotine dependence, cigarettes, uncomplicated (principal); Z12.2 Encounter for screening for malignant neoplasm of respiratory organs ==

== ENCOUNTER → 2022-09-21 | Outpatient (CLI) | payer MEDICARE ==
[2022-09-21 13:52] LABS: HEMATOCRIT 46.2 % (36.0-47.0); HEMOGLOBIN 15.6 g/dl (12.0-15.5); MEAN CORPUSCULAR HEMOGLOBIN 30.5 pg (27.0-33.0); MEAN CORPUSCULAR HGB CONC 33.8 g/dl (32.0-36.5); MEAN CORPUSCULAR VOLUME 90.4 fl (80.0-96.0); PLATELET COUNT, AUTOMATED 311 10^3/uL (150-450); RED BLOOD COUNT 5.11 10^6/uL (4.00-5.40); WHITE BLOOD COUNT 6.7 10^3/uL (4.0-10.0)
[2022-09-21 14:43] LABS: HEMOGLOBIN A1c 7.8 % (4.0-6.0)
[2022-09-21 14:59] LABS: CREATININE, URINE 57.5 MG/DL
[2022-09-21 15:02] LABS: MALB URINE SIEMENS < 3.0 MG/L; MAU/CREAT RATIO 5.2 MCG/MG (0.0-30.0)
[2022-09-21 15:18] LABS: ALBUMIN 3.9 G/DL (3.2-5.2); ALKALINE PHOSPHATASE 103 U/L (46-116); ALT/SGPT 31 U/L (7.0-40); AST/SGOT 13 U/L (<34); BILIRUBIN,TOTAL 0.5 MG/DL (0.3-1.2); BLOOD UREA NITROGEN 14 MG/DL (9-23); CARBON DIOXIDE LEVEL 28 MMOL/L (20-31); CHLORIDE LEVEL 104 MMOL/L (98-107); CHOLESTEROL LEVEL 119 MG/DL (<200); CREATININE FOR GFR 0.51 MG/DL (0.55-1.30); FREE T4 1.45 NG/DL (0.89-1.76); GLOMERULAR FILTRATION RATE > 60.0 (>45); GLUCOSE, FASTING 135 MG/DL (74-106); POTASSIUM SERUM 4.8 MMOL/L (3.5-5.1); SODIUM LEVEL 139 MMOL/L (136-145); TOTAL 25(OH) VITAMIN D 73.7 NG/ML (20.0-100.0); TOTAL PROTEIN 6.7 G/DL (5.7-8.2); TRIGLYCERIDES LEVEL 154 MG/DL (<150); VITAMIN B12 LEVEL 327 PG/ML (211-911)
[2022-09-21 15:37] LABS: CHOLESTEROL RISK RATIO 3.16 (<5); HDL CHOLESTEROL 37.6 MG/DL (>40); LDL CHOLESTEROL 50.6 MG/DL (<100); NON-HDL-C 81.4 MG/DL
== END ==
LOC: M PLALAB 11:25
PROVIDERS: ATTEND Internal Medicine Hematology
DX: E11.9 Type 2 diabetes mellitus without complications (principal); Z79.899 Other long term (current) drug therapy

== ENCOUNTER → 2022-10-17 | Outpatient (CLI) | payer MEDICARE ==
[~2022-10-17] MED LIST changes: +DICL100G10; +DICL100G10 TOP; -DICL1GEL3; -DICL1GEL3 TOP
== END ==
LOC: M PLAIMG 08:45
PROVIDERS: ATTEND Internal Medicine Hematology
DX: M77.32 Calcaneal spur, left foot (principal)

== ENCOUNTER → 2022-12-11 | Outpatient (CLI) | payer MEDICARE | LOC: M WHC 09:43 | PROVIDERS: ATTEND Specialist | DX: Z12.31 Encounter for screening mammogram for malignant neoplasm of breast (principal) ==

== ENCOUNTER → 2022-12-11 | Outpatient (CLI) | payer MEDICARE | LOC: M WHC 10:34 | PROVIDERS: ATTEND Internal Medicine Hematology | DX: Z13.820 Encounter for screening for osteoporosis (principal); Z78.0 Asymptomatic menopausal state ==

== ENCOUNTER → 2023-01-10 | Outpatient (CLI) | payer MEDICARE ==
[2023-01-10 14:04] LABS: ALBUMIN 3.9 G/DL (3.2-5.2); ALKALINE PHOSPHATASE 97 U/L (46-116); ALT/SGPT 25 U/L (7.0-40); AST/SGOT 17 U/L (<34); BILIRUBIN,TOTAL 0.4 MG/DL (0.3-1.2); BLOOD UREA NITROGEN 16 MG/DL (9-23); CALCIUM LEVEL 9.4 MG/DL (8.3-10.6); CARBON DIOXIDE LEVEL 28 MMOL/L (20-31); CHLORIDE LEVEL 106 MMOL/L (98-107); CREATININE FOR GFR 0.53 MG/DL (0.55-1.30); GLOMERULAR FILTRATION RATE > 60.0 (>45); GLUCOSE, FASTING 107 MG/DL (74-106); POTASSIUM SERUM 4.5 MMOL/L (3.5-5.1); SODIUM LEVEL 140 MMOL/L (136-145); TOTAL PROTEIN 6.8 G/DL (5.7-8.2)
[2023-01-10 14:10] LABS: HEMATOCRIT 47.5 % (36.0-47.0); MEAN CORPUSCULAR HEMOGLOBIN 30.4 pg (27.0-33.0); MEAN CORPUSCULAR HGB CONC 33.7 g/dl (32.0-36.5); MEAN CORPUSCULAR VOLUME 90.3 fl (80.0-96.0); PLATELET COUNT, AUTOMATED 314 10^3/uL (150-450); RED BLOOD COUNT 5.26 10^6/uL (4.00-5.40); WHITE BLOOD COUNT 8.2 10^3/uL (4.0-10.0)
[2023-01-10 14:31] LABS: HEMOGLOBIN A1c 6.6 % (4.0-6.0)
== END ==
LOC: M PLALAB 09:11
PROVIDERS: ATTEND Internal Medicine Hematology
DX: E11.9 Type 2 diabetes mellitus without complications (principal)

== ENCOUNTER 2023-10-09 06:26 | Day surgery (SDC) | payer MEDICARE ==
[~2023-10-09] VITALS: Ht 165.1 cm; Wt 87.1 kg
[~2023-10-09 06:26] MED LIST changes: +APPL300T4 PO; -CRAN400C PO; +CRAN450T4 PO; +CRANBERRY400 MG PO; +ERGO500029 PO; +GLIP5TAB17 PO; +METF-839 PO; +MULTTAB61 PO; +NS 1,000 ML IV ONE
[2023-10-09] MEDS ORDERED: propofoL 200 MG/20 ML VIAL As Ordered ONE (07:07)
[2023-10-09] MEDS ORDERED: LIDOCAINE 2% 100MG/5ML SDV (FOR ANES.) As Ordered ONE (07:07)
[2023-10-09 08:30] VITALS: BP 129/60; O2SAT 97
== END 2023-10-09 08:36 | disposition home or self-care (01) ==
LOC: M OPP 06:26
PROVIDERS: ATTEND Internal Medicine Gastroenterology
DX: Z86.010 Personal history of colon polyps (principal); K63.5 Polyp of colon; K57.30 Diverticulosis of large intestine without perforation or abscess without bleeding; E03.9 Hypothyroidism, unspecified; E11.9 Type 2 diabetes mellitus without complications; E78.00 Pure hypercholesterolemia, unspecified; F17.200 Nicotine dependence, unspecified, uncomplicated; Z79.2 Long term (current) use of antibiotics; Z79.84 Long term (current) use of oral hypoglycemic drugs; Z79.890 Hormone replacement therapy; Z79.891 Long term (current) use of opiate analgesic; Z79.899 Other long term (current) drug therapy; Z88.2 Allergy status to sulfonamides; Z88.6 Allergy status to analgesic agent; Z88.8 Allergy status to other drugs, medicaments and biological substances; Z91.048 Other nonmedicinal substance allergy status

== ENCOUNTER → 2024-01-01 | Outpatient (CLI) | payer MEDICARE ==
[~2024-01-01] MED LIST changes: +GABA-1172; +GABA-1172 PO; -GABA-282; -GABA-282 PO; -NS 1,000 ML IV ONE
== END ==
LOC: M RAD 13:23
PROVIDERS: ATTEND Internal Medicine
DX: Z12.2 Encounter for screening for malignant neoplasm of respiratory organs (principal); F17.210 Nicotine dependence, cigarettes, uncomplicated

== ENCOUNTER → 2024-06-30 | Outpatient (CLI) | payer MEDICARE | LOC: M WHC 10:28 | PROVIDERS: ATTEND Specialist | DX: Z12.31 Encounter for screening mammogram for malignant neoplasm of breast (principal); R92.323 Mammographic fibroglandular density, bilateral breasts ==

== ENCOUNTER → 2025-01-01 | Outpatient (CLI) | payer MEDICARE | LOC: M RAD 10:21 | PROVIDERS: ATTEND Internal Medicine | DX: F17.210 Nicotine dependence, cigarettes, uncomplicated (principal) ==